=== PATIENT | female | born 1970 | race Caucasian/White ===

== ENCOUNTER → 2016-08-23 | Outpatient (REF) | payer OTHER | LOC: M SFHCWAGY 09:32 | PROVIDERS: ATTEND Nurse Practitioner Women's Health | DX: Z12.4 Encounter for screening for malignant neoplasm of cervix (principal) ==

== ENCOUNTER → 2016-08-23 | Outpatient (CLI) | payer BC ==
--- NOTE | 2016-08-23 10:27 | REPMRS ---
Patient History The patient states she had a clinical breast exam in Family history of breast cancer in sister at age 28. Digital Woman Screen Mammo: August 23, 2016 - Exam #: [id number] Bilateral CC and MLO view(s) were taken. Technologist: Lola Nguyen, Technologist Prior study comparison: July 06, 2015, digital woman screen mammo performed at [facility]. April 26, 2014, digital mammo diagnostic bilateral, performed at [facility]. 2013, digital bilateral screening mammo, performed at [facility]. FINDINGS: There are scattered fibroglandular densities. There is a moderate amount of residual fibroglandular tissue which is fairly symmetric. There is no change in the nodular opacity projecting in the upper outer quadrant of the left breast. There is no interval development of dominant mass, architectural distortion, or clustered microcalcification typical of malignancy. There has been no change in the appearance of the mammogram from the prior studies. ASSESSMENT: BI-RADS/ACR category 1 mammogram. Negative. Recommendation Routine screening mammogram of both breasts in 1 year (for women over age 40). This mammogram was interpreted with the aid of an FDA-approved computer-aided dectection system. Electronically Signed By: Jim Tamayo MD 08/23/16 0806
== END ==
LOC: M WHC 09:31
PROVIDERS: ATTEND Nurse Practitioner Women's Health
DX: Z12.31 Encounter for screening mammogram for malignant neoplasm of breast (principal); Z80.3 Family history of malignant neoplasm of breast

== ENCOUNTER → 2016-08-29 | Outpatient (CLI) | payer BC ==
--- NOTE | 2016-08-30 04:17 | REP ---
Clinical: Pelvic pain . Technique: Transabdominal pelvic ultrasound followed by transvaginal examination for better evaluation of the endometrium and adnexa with color Doppler evaluation of the ovaries. Findings: Bladder is unremarkable and measures 15.1 x 9.2 x 8.6 cm . Normal anteverted uterus measures 8.2 x 3.7 x 5.6 cm . The endometrial complex measures 8.6 mm thickness. No discrete uterine or endometrial abnormalities are appreciated. Incidental note is made of small Nabothian cysts. Bilateral ovaries are normal in appearance and vascularity without evidence for torsion. Right ovary measures 4.5 x 2.8 x 4.4 cm with 3.3 cm complex likely physiologic cyst ; R I = 0.42 . Left ovary measures 2.1 x 2.0 x 2.4 cm ; R I = 0.46 . No pelvic fluid or adnexal mass lesion . Impression: 1. 3.3 cm complex likely physiologic cyst. Consider reevaluation in 4-6 weeks to evaluate for resolution. 2. Otherwise normal pelvic ultrasound Signed by Murali Gordillo MD 08/30/2016 04:09 A
== END ==
LOC: M WHC 09:40
PROVIDERS: ATTEND Nurse Practitioner Women's Health
DX: R10.2 Pelvic and perineal pain (principal); N88.8 Other specified noninflammatory disorders of cervix uteri

== ENCOUNTER → 2017-10-08 | Outpatient (REF) | payer BC | LOC: M SFHCWAGY 09:44 | DX: Z01.419 Encounter for gynecological examination (general) (routine) without abnormal findings (principal); N97.2 Female infertility of uterine origin | CPT/HCPCS: G0123 ==

== ENCOUNTER → 2017-10-08 | Outpatient (CLI) | payer BC | LOC: M WHC 09:14 | DX: Z12.31 Encounter for screening mammogram for malignant neoplasm of breast (principal) ==

== ENCOUNTER → 2019-06-21 | Outpatient (CLI) | payer BC ==
[2019-06-21 13:12] LABS: BASO # 0.1 10^3/uL (0.0-0.2); BASO % 1.1 % (0.0-1.0); EOS # 0.1 10^3/uL (0.0-0.5); EOS % 0.8 % (0.0-3.0); HEMATOCRIT 39.6 % (36.0-47.0); HEMOGLOBIN 13.1 g/dl (12.0-15.5); LYMPH # 2.5 10^3/uL (1.5-5.0); LYMPH % 33.6 % (24.0-44.0); MEAN CORPUSCULAR HGB CONC 33.1 g/dl (32.0-36.5); MEAN CORPUSCULAR VOLUME 93.8 fl (80.0-96.0); MONO # 0.6 10^3/uL (0.0-0.8); NEUTROPHILS # 4.2 10^3/uL (1.5-8.5); NEUTROPHILS % 56.4 % (36.0-66.0); PLATELET COUNT, AUTOMATED 365 10^3/uL (150-450); RED BLOOD COUNT 4.22 10^6/uL (4.00-5.40); WHITE BLOOD COUNT 7.4 10^3/uL (4.0-10.0)
[2019-06-21 13:23] LABS: ALBUMIN 4.2 GM/DL (3.2-5.2); ALT/SGPT 20 U/L (12-78); BILIRUBIN,TOTAL 0.3 MG/DL (0.2-1.0); BLOOD UREA NITROGEN 9 MG/DL (7-18); CARBON DIOXIDE LEVEL 27 MEQ/L (21-32); CHLORIDE LEVEL 107 MEQ/L (98-107); CREATININE FOR GFR 0.75 MG/DL (0.55-1.30); FREE T4 0.87 NG/DL (0.76-1.46); GLOMERULAR FILTRATION RATE > 60.0 (>58); GLUCOSE, FASTING 92 MG/DL (70-100); POTASSIUM SERUM 4.2 MEQ/L (3.5-5.1); SODIUM LEVEL 140 MEQ/L (136-145); TOTAL PROTEIN 7.2 GM/DL (6.4-8.2)
[2019-06-23 00:07] LABS: Lyme Disease IgG/IgM Antibodie <0.91 ISR (0.00-0.90); Lyme Disease IgM Ab Quantitati <0.80 index (0.00-0.79)
== END ==
LOC: M PLALAB 11:28 → M SMT 11:28
PROVIDERS: ATTEND Physician Assistant
DX: R50.9 Fever, unspecified (principal); R51 Headache

== ENCOUNTER → 2020-02-28 | Outpatient (REF) | payer BC | LOC: M SFHCWAGY 08:58 | PROVIDERS: ATTEND Nurse Practitioner Women's Health | DX: Z12.4 Encounter for screening for malignant neoplasm of cervix (principal); R87.610 Atypical squamous cells of undetermined significance on cytologic smear of cervix (ASC-US) | CPT/HCPCS: 87624; G0123 ==

== ENCOUNTER → 2020-06-12 | Outpatient (REF) | payer BC | LOC: M PLALAB 12:02 | PROVIDERS: ATTEND Nurse Practitioner Women's Health | DX: Z15.09 Genetic susceptibility to other malignant neoplasm (principal) ==

== ENCOUNTER → 2020-06-12 | Outpatient (CLI) | payer BC ==
--- NOTE | 2020-06-13 05:03 | REP ---
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 TECHNIQUE: Transabdominal pelvic ultrasound with color Doppler evaluation of the ovaries. FINDINGS: Bladder is unremarkable and measures 12.3 x 9.7 x 5.1 cm (318 cc). Normal heterogeneous anteverted uterus measures 6.9 x 3.6 x 4.3 cm. The endometrial complex measures 6.8 mm thickness. No discrete uterine or endometrial abnormalities are appreciated. Bilateral ovaries are normal in appearance and vascularity without evidence for torsion. Right ovary measures 1.8 x 1.3 x 2.5 cm. Left ovary measures 1.8 x 1.3 x 1.6 cm; R I = 0.73. No pelvic fluid or adnexal mass lesion IMPRESSION: Essentially normal pelvic ultrasound <Electronically signed by Murali Gordillo > 06/13/20 [id number]
== END ==
LOC: M WHC 11:29
PROVIDERS: ATTEND Nurse Practitioner Women's Health
DX: Z15.09 Genetic susceptibility to other malignant neoplasm (principal)

== ENCOUNTER → 2020-07-04 | Outpatient (CLI) | payer BC ==
[~2020-07-04] MED LIST: CYCL-707 PO
--- NOTE | 2020-07-04 14:40 | RADONC.CN ---
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 She is seen today for consideration of adjuvant RT. Diagnosis/Treatment History Oncologic History 04/11/20 [facility] mammogram with questionable lesion in the upper outer left breast. 05/01/20 Biopsy showing IDC ER/MO+ HER2- grade 1. 05/10/20 MRI without regional disease. 05/24/20 Lumpectomy with SLNB ([facility]), margins widely negative pT1aN0 Genetic testing with PMS2 gene (Harmon Syndrome) Interval History Patient has some left axillary discomfort and heaviness as her only postoperative sequelae, she has no pain in the breast itself. Had an axillary seroma which was drained and has not reaccumulated. No swelling or other skin concerns. She is doing PT/OT with good effect. She has preserved energy level and good appetite. She has not started endocrine therapy yet. Past Medical History: No medical problems Breast history: OCP for 12 years 1st @ 21 Menses @ 13 [employer] @ 49 Past Surgical History: As above Family History: Sister breast cancer @ 30 Social History: Never smoker 1 drink per week Allergies / Meds Allergies: Coded Allergies: MS - Desmopressin (Verified Adverse Reaction, Mild, HTN AND TACHYCARDIA, FACIAL FLUSHING..., 11/03/12) Home Meds Reported Medications Cyclobenzaprine HCl (Cyclobenzaprine HCl) 10 Mg Tablet, 10 MG PO TID PRN for MUSCLE SPASMS, #15 TAB 07/04/20 Review of Systems Constitutional: Denies: Chills, Fever, Night Sweats Eyes: Denies: Pain, Vision change HEENT: Denies: Head Aches, Ear Pain, Dysphagia, Sinus Congestion, Post Nasal Drip, Sore Throat, Epistaxis, Other Symptoms Skin: Denies: Rash, Lesions, Bruising Pulmonary: Denies: Dyspnea, Cough Cardiovascular: Denies: Chest Pain, Palpitations, Edema Breast: Denies: New Breast Lumps / Masses, Nipple Retraction, Nipple Discharge, Breast Skin Changes, Breast Pain or Tenderness Gastrointestinal: Denies: Nausea, Vomiting, Abdominal Pain, Diarrhea Genitourinary: Denies: Dysuria, Frequency, Incontinence Musculoskeletal: Denies: Neck pain, Back pain Neurological: Denies: Weakness, Numbness, Incoordination Psych: Reports: Mood Normal; Denies: Memory Issues, Thoughts of Self Harm Vital Signs Ht 66" Wt 170 BMI 27.4 T 98.2 P 97 RR 16 BP 130/83 O2 100% General Exam: Positive: Alert, Cooperative, No Acute Distress Eye Exam: Positive: PERRLA, EOMI ENT EXAM: Positive: Mucous membr. moist/pink, Pharynx Normal Neck Exam: Negative: Thyromegaly, Lymphadenopathy Chest Exam: Positive: Normal air movement; Negative: Rales, Rhonchi, Wheezing Heart Exam: Positive: Rate Normal, Regular Rhythm Breast Exam: Positive: Symmetric Bilaterally (Ptotic), Other Breast Findings (Palpable cord left axilla. No LUE swelling); Negative: Lumps or Masses (Palpable post-operative fibrosis left outer breast), Nipple Retraction, Nipple Discharge, Skin Changes Abdomen Exam: Positive: Soft; Negative: Tenderness, Mass Extremity Exam: Negative: Edema, Tenderness Skin Exam: Positive: Nl turgor and temperature; Negative: Rash Neuro Exam: Positive: Normal Gait, Normal Speech, Cranial Nerves 3-12 NL Psych Exam: Positive: Mental status NL, Mood NL, Memory Intact Diagnostic and Laboratory Diagnostic Review Radiologic images, relevant labs and pathology reports were personally reviewed and discussed with Ms. Reyna. Assessment and Plan Impression Ms. 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 She is seen today for consideration of adjuvant RT. Stage Stage IA left upper outer breast IDC pT1aN0(sn)M0 ER/MO+ HER2- grade 1 Performance Status ECOG 0 Plan We had an extensive discussion with Ms. Reyna regarding the diagnosis at hand and available therapeutic options. She has recovered well from surgery. She has screening EGD/colonoscopy follow up as well as a gynecology appointment. She has an early stage left breast cancer in the setting of PMS2 mutation. The knowledge of a link between Harmon syndrome and breast cancer is evolving and there is some association known. Therefore I would err on the side of treating her as we do other patients with known mutations (such as BRCA+) and not offer PBI. Given her age and aforementioned status, I recommended left WBI 40 Gy in 15 fractions with a 10 Gy in 5 fraction tumor bed boost. Based on exam, and her breast being somewhat pendulous, I think she would benefit most from prone treatment (as opposed to DIBH, which does not mitigate the 'separation problem'). Rather prone should ensure the most homogenous plan and spare the heart and lung best as well. We discussed the logistics of receiving radiation therapy in detail including the need for a 1-time planning session. This can occur in the next week. We reviewed the side effects of treatment, skin reaction, fatigue and late fibrosis. After discussing the risks, benefits and alternatives to radiation therapy, Ms. Reyna was amenable to pursuing radiotherapy. All questions were answered to the patient's satisfaction. We instructed the patient that if there were any questions,concerns or changes in clinical status in the interim to contact us. Recommendations Prone WBI 40 Gy in 15 fractions + 10 Gy in 5 fraction tumor bed boost. Simulation in the next week She has mammographic follow up through [facility] LOBO PANTOJA MD Jul 04, 2020 14:40
== END ==
LOC: M ONCR 10:16
PROVIDERS: ATTEND General Practice
DX: C50.412 Malignant neoplasm of upper-outer quadrant of left female breast (principal)

== ENCOUNTER → 2020-07-27 | Outpatient (RCR) | payer BC | LOC: M ONCR 07-10 13:24 | PROVIDERS: ATTEND General Practice | DX: C50.412 Malignant neoplasm of upper-outer quadrant of left female breast (principal) ==

== ENCOUNTER 2020-08-16 10:00 | Outpatient (RCR) | payer BC | END 2020-08-27 | LOC: M ONCR 10:00 | PROVIDERS: ATTEND General Practice | DX: C50.412 Malignant neoplasm of upper-outer quadrant of left female breast (principal) ==

== ENCOUNTER → 2020-09-05 | Outpatient (CLI) | payer BC ==
--- NOTE | 2020-09-05 11:49 | RADENCPD ---
Date/Time of Encounter Date of Encounter: Sep 05, 2020 Time of Encounter: 11:42 Encounter Melissa came in today for a skin check, she received 40 Gy in 15 fractions to the left whole breast and 10 Gy in 5 fractions to the tumor bed with prone technique completed 08/16/20. She reports that she has noted some whitish patches in the central left breast over the past few weeks. She also has some intermittent aching pain in the left chest, comes and goes, sometimes made more intense when she uses her LUE. On exam there is patchy hypopigmentation in the medial left breast, no excoriations or rash. On palpation there is mild left chest wall tenderness. There is no discernible swelling in the LUE or axilla. Assessment: She has developed patchy hypopigmentation in the medial portion of the irradiated volume, which is a common and benign (aside for cosmetic impact) post RT. Her chest wall pain is likely cumulative from surgery (as it is localized around the tumor bed area) and RT. This can resolve as small nerve fibers heal, or remain present in chronic form ongoing. I suggested local therapies like heat, ice and gentle massage, as well as OTC pain medication if needed. If the pain proves to worsen or become more bothersome, then we could try gabapentin or a TCA. She will follow up as scheduled 02/14/21. LOBO PANTOJA MD Sep 05, 2020 11:49
== END ==
LOC: M ONCR 11:19
PROVIDERS: ATTEND General Practice
DX: C50.412 Malignant neoplasm of upper-outer quadrant of left female breast (principal); L81.9 Disorder of pigmentation, unspecified; R07.89 Other chest pain

== ENCOUNTER → 2021-02-14 | Outpatient (CLI) | payer BC ==
--- NOTE | 2021-02-14 12:43 | RADONC ---
Radiation Oncology Hx/FUP Radiation Oncology Hx/FUP Date of Service: Feb 14, 2021 Pt Identifier Melissa Reyna is a 50 year old female with a history of Harmon Syndrome (PMS2 mutation) and a history of screening detected left breast cancer pT1aN0(sn)M0 ER/SC+ HER2- grade 1, stage IA IDC s/p lumpectomy and SLNB on 05/24/[address] [facility]. She completed adjuvant RT to the left whole breast (prone technique) 40 Gy in 15 fractions + 10 Gy in 5 fraction tumor bed boost on 08/16/20. She continues on AI with Dr. Puente @ [facility]. Diagnosis/Treatment History Oncologic History 04/11/20 [facility] mammogram with questionable lesion in the upper outer left breast. 05/01/20 Biopsy showing IDC ER/SC+ HER2- grade 1. 05/10/20 MRI without regional disease. 05/24/20 Lumpectomy with SLNB ([facility]), margins widely negative pT1aN0 Genetic testing with PMS2 gene (Harmon Syndrome) 07/18/20-08/16/20 Adjuvant RT 40 Gy in 15 fractions + 10 Gy in 5 fraction boost (prone) 08/2020- AI 11/2020 Hysterectomy (risk reduction) Survivorship: Test Due Next Last result Notes TSH, T4* 6m post-tx, then q1y N/A Carotid US* q10 y post-tx N/A Smoking cessation Assess annually if applicable N/A Screening CT chest q1y if eligible per USPSTF N/A Mammograms Min q1y, if breast conservation June [facility] negative CBC,CMP, Lipids q1y 2021 DEXA q2y if on AI [address] Puente Interval History Melissa has struggled with AI, was on anastrozole which made her have joint aches and unable to sleep. She switched to letrozole and still has joint pains and aches. She is not tolerating this well as it leaves her less active. From a breast standpoint she has no cosmetic concerns today, she does still occasionally have transient 'zaps' which are painful but not overly bothersome. Appetite is good and weight is stable. Current Therapy AI (Cindi @ [facility]) Stage Left breast cancer pT1aN0(sn)M0 ER/SC+ HER2- Grade 1 stage IA Social History: Never smoker Does not drink Allergies / Meds Allergies: Coded Allergies: MS - Desmopressin (Verified Adverse Reaction, Mild, HTN AND TACHYCARDIA, FACIAL FLUSHING..., 11/03/12) Home Meds Reported Medications Cyclobenzaprine HCl (Cyclobenzaprine HCl) 10 Mg Tablet, 10 MG PO TID PRN for MUSCLE SPASMS, #15 TAB 07/04/20 Review of Systems Review of Systems Constitutional: Denies: Fatigue, Weight Loss Eyes: Denies: Pain HEENT: Denies: Head Aches Skin: Denies: Rash Breast: Denies: New Breast Lumps / Masses, Nipple Retraction, Nipple Discharge, Breast Skin Changes, Breast Pain or Tenderness Pulmonary: Denies: Dyspnea Cardiovascular: Denies: Chest Pain Gastrointestinal: Denies: Nausea, Vomiting, Abdominal Pain Genitourinary: Denies: Dysuria Hematologic: Denies: Bruising Musculoskeletal: Reports: Back pain, Hand pain, Leg pain, Foot pain, Joint pain Neurological: Denies: Weakness, Numbness Psych: Reports: Mood Normal Physical Examination Vital Signs Ht 65" Wt 170 lbs T 98.4 P 82 RR 18 BP 129/83 O2 99% Pain 0 Fatigue 0 General Exam: Positive: Alert, Cooperative, No Acute Distress Eye Exam: Positive: PERRLA, EOMI ENT EXAM: Positive: Atraumatic Neck Exam: Positive: Supple Chest Exam: Positive: Clear to auscultation Heart Exam: Positive: Rate Normal Breast Exam: Positive: Symmetric Bilaterally (Mild ptosis, no palpable breast or axillary lesions BL. ); Negative: Nipple Retraction, Nipple Discharge, Skin Changes Abdomen Exam: Positive: Soft Extremity Exam: Negative: Edema Skin Exam: Positive: Nl turgor and temperature Neuro Exam: Positive: Normal Gait, Normal Speech, Cranial Nerves 3-12 NL Psych Exam: Positive: Mental status NL Diagnostic and Laboratory Diagnostic Review Radiologic images, relevant labs and pathology reports were personally reviewed and discussed with Ms. Reyna. Assessment and Plan Impression Assessment Ms. Reyna is a 50 year old female with a history of Harmon Syndrome (PMS2 mutation) and a history of screening detected left breast cancer pT1aN0(sn)M0 ER/SC+ HER2- grade 1, stage IA IDC s/p lumpectomy and SLNB on 05/24/[address] [facility]. She completed adjuvant RT to the left whole breast (prone technique) 40 Gy in 15 fractions + 10 Gy in 5 fraction tumor bed boost on 08/16/20. She continues on AI with Dr. Puente @ [facility]. We discussed her current struggle with the AIs she has tried. I counselled that 5-10 years of adjuvant AI is a level 1 recommendation due to the risk reduction in both ipsilateral and contralateral breast cancer recurrence associated with its use. I framed this in the context that the absolute risk of recurrence is low even without adjuvant AI, and that the most important measure to promote survival is to continue screening with mammography at the appropriate intervals. Complying with screening means that even if another lesion manifests in the coming decades, then it will most likely be curable with high probability. Thus it would be reasonable to try any additional AI options to see if she tolerates one (she has tried 2/3 current drugs available), and if not stop the drugs altogether. She was happy to hear this perspective. With respect to ongoing follow up she will be seeing medical oncology in the next few months, so I will see her in 6 months time. Performance Status ECOG 0 Plan Follow up in 6 months Mammograms/MRI in June 2021 Ms. Reyna was encouraged to call with questions or concerns in the interim period. Billing Statement Total time of [26] minutes was spent preparing for the visit [2], obtaining HPI [4], examining the patient [4], reviewing diagnostic tests [2], discussing management options [6], coordinating care [1], and writing this note [7]. LOBO PANTOJA MD Feb 14, 2021 12:43
== END ==
LOC: M ONCR 09:53
PROVIDERS: ATTEND General Practice
DX: C50.412 Malignant neoplasm of upper-outer quadrant of left female breast (principal); Z15.09 Genetic susceptibility to other malignant neoplasm; Z79.811 Long term (current) use of aromatase inhibitors; Z88.8 Allergy status to other drugs, medicaments and biological substances; Z92.3 Personal history of irradiation

== ENCOUNTER → 2021-03-08 | Outpatient (CLI) | payer BC ==
[2021-03-08 09:35] LABS: BASO # 0.1 10^3/uL (0.0-0.2); BASO % 1.1 % (0.0-1.0); EOS # 0.1 10^3/uL (0.0-0.5); EOS % 1.9 % (0.0-3.0); HEMATOCRIT 39.1 % (36.0-47.0); HEMOGLOBIN 12.9 g/dl (12.0-15.5); LYMPH # 2.3 10^3/uL (1.5-5.0); LYMPH % 31.1 % (24.0-44.0); MEAN CORPUSCULAR HEMOGLOBIN 30.6 pg (27.0-33.0); MEAN CORPUSCULAR VOLUME 92.9 fl (80.0-96.0); MONO # 0.6 10^3/uL (0.0-0.8); MONO % 8.5 % (2.0-8.0); NEUTROPHILS # 4.3 10^3/uL (1.5-8.5); NEUTROPHILS % 57.3 % (36.0-66.0); PLATELET COUNT, AUTOMATED 335 10^3/uL (150-450); RED BLOOD COUNT 4.21 10^6/uL (4.00-5.40); WHITE BLOOD COUNT 7.4 10^3/uL (4.0-10.0)
[2021-03-08 10:08] LABS: ALBUMIN 3.9 GM/DL (3.2-5.2); ALT/SGPT 39 U/L (12-78); BILIRUBIN,TOTAL 0.3 MG/DL (0.2-1.0); BLOOD UREA NITROGEN 9 MG/DL (7-18); CARBON DIOXIDE LEVEL 29 MEQ/L (21-32); CHLORIDE LEVEL 111 MEQ/L (98-107); CHOLESTEROL LEVEL 197 MG/DL (<200); CHOLESTEROL RISK RATIO 2.402 (<5); CREATININE FOR GFR 0.68 MG/DL (0.55-1.30); GLOMERULAR FILTRATION RATE > 60.0 (>51); GLUCOSE, FASTING 107 MG/DL (70-100); HDL CHOLESTEROL 82 MG/DL (>40); LDL CHOLESTEROL 102 MG/DL (<100); NON-HDL-C 115 MG/DL; POTASSIUM SERUM 4.5 MEQ/L (3.5-5.1); RHEUMATOID FACTOR QUANT < 10.0 IU/ML (<15.0); SODIUM LEVEL 143 MEQ/L (136-145); TOTAL PROTEIN 6.9 GM/DL (6.4-8.2); TRIGLYCERIDES LEVEL 64 MG/DL (<150); URIC ACID 3.8 MG/DL (2.6-6.0)
[2021-03-08 10:09] LABS: ERYTHROCYTE SEDIMENTATION RATE 5 mm/hr (0-30)
--- NOTE | 2021-03-08 10:36 | REP ---
INDICATION: PAIN IN RIGHT FINGERS- LABS FIRST COMPARISON: None. TECHNIQUE: There are four views. FINDINGS: There is no fracture or dislocation. Mineralization is normal. There is minimal joint space narrowing of the PIP and D IP articulations. This is compatible with mild articular cartilage atrophy and likely early osteoarthritic change. There are no calcifications or foreign bodies. IMPRESSION: Minimal joint space narrowing of the PIP and D IP articulations. <Electronically signed by Karthikeyan Blank > 03/08/21 [id number]
[2021-03-10 00:11] LABS: ANA (HEP2) Negative (.); CYCLIC CITRULLINATED PEPTIDE 5 units (0-19); Lyme Disease IgG/IgM Antibodie <0.91 ISR (0.00-0.90); Lyme Disease IgM Ab Quantitati <0.80 index (0.00-0.79)
== END ==
LOC: M LAB 09:02
PROVIDERS: ATTEND Family Medicine
DX: Z13.220 Encounter for screening for lipoid disorders (principal); Z13.0 Encounter for screening for diseases of the blood and blood-forming organs and certain disorders involving the immune mechanism; Z13.29 Encounter for screening for other suspected endocrine disorder; M79.644 Pain in right finger(s)

== ENCOUNTER → 2021-05-14 | Outpatient (REF) ==
[2021-05-14 11:07] LABS: COLLAGEN EPINEPHRINE 114 SECONDS (74-162)
== END ==
LOC: M LAB REF 10:43
DX: Z13.0 Encounter for screening for diseases of the blood and blood-forming organs and certain disorders involving the immune mechanism (principal)

== ENCOUNTER → 2021-05-15 | Outpatient (CLI) | payer BC ==
--- NOTE | 2021-05-16 11:57 | ECHO ---
ECHOCARDIOGRAM DATE OF PROCEDURE: 05/15/2021 Age: 50 Gender: Female Height: 66 inches Weight: 167 pounds Body surface area: 1.85 m2 Outpatient. REFERRING PHYSICIAN: Dr. Angeles D.O. INDICATION: Breast cancer, post radiation therapy. MEASUREMENTS: 2D Measurements: RV - 2.9 cm LV - 4.4 cm Septum 1.8 cm Posterior wall 0.8 cm Aortic root 3.0 cm LA - 4.4 cm LVEF 75% Doppler Measurements: AV - 1.05 m/s LVOT - 0.96 m/s LVOT diameter 1.9 cm MV-E 70, A 52, E/A ratio 1.3 Early mitral deceleration time 155 msec E prime medial 0 A prime medial 8 E prime lateral 14.8 PV - 0.86 m/s Pulmonary artery acceleration time 144 msec RVSP 24 mmHg IVC - 1.6 cm COMMENTS: Normal sinus rhythm without conduction disturbance. M-mode and 2-dimensional echocardiography was performed with pulse, continuous wave, color flow, and tissue Doppler studies. Normal left ventricular size and wall thickness with hyperkinetic wall motion. Normal left atrial size and Doppler assessment of LV diastolic function and estimated mean left atrial pressure. Normal right heart chamber sizes and wall motion and estimated pulmonary arterial pressure. Normal IVC size and collapse against an elevated central venous pressure. Normal aortic dimensions. Three equal-size aortic cusps of normal thickness and cusp separation without functional abnormality. Normal-appearing mitral valvular apparatus with adequate leaflet excursion and no posterior systolic buckling. Very mild mitral insufficiency (physiologic). Normal-appearing tricuspid valve with very mild insufficiency. No apparent intracardiac mass or pericardial effusion. MTDD
== END ==
LOC: M CARPUL 08:17
PROVIDERS: ATTEND Family Medicine
DX: R23.3 Spontaneous ecchymoses (principal); R61 Generalized hyperhidrosis

== ENCOUNTER → 2021-09-10 | Outpatient (CLI) | payer BC | LOC: M ONCR 11:18 | PROVIDERS: ATTEND General Practice | DX: C50.412 Malignant neoplasm of upper-outer quadrant of left female breast (principal); Z15.09 Genetic susceptibility to other malignant neoplasm; Z88.8 Allergy status to other drugs, medicaments and biological substances; Z92.3 Personal history of irradiation ==